=== PATIENT | male | born 1990 | race African-American/Black ===

== ENCOUNTER 2018-02-10 15:07 | Emergency (ER) | payer OTHER ==
[~2018-02-10] VITALS: Ht 182.9 cm; Wt 72.6 kg
--- NOTE | 2018-02-10 15:20 | NUR ---
ED Nurse Note: Patient came in from home c/o SOB X 2 days. SPo2 95% in the ER on room air . Pt ran out of albuterol INH. by the bedside. RT called
[2018-02-10 15:26] VITALS: BP 137/82
[2018-02-10] MEDS: Albuterol ud Inhalation HHN SCH ×3 (15:55→16:19)
[2018-02-10] MEDS: Ipratropium 0.02% Inh Soln 2.5ml UD HHN SCH ×3 (15:55→16:19)
[2018-02-10] MEDS ORDERED: ALBUTEROL2.5 MG/3 M HHN (16:37)
[2018-02-10] MEDS ORDERED: COMP-AIR NEBUL1 EACH MC (16:37)
[2018-02-10] MEDS ORDERED: ALBUTEROL SULF8.5 GM INH (16:37)
[2018-02-10] MEDS ORDERED: ZYRTEC10 MG ORAL (16:37)
[2018-02-10] MEDS ORDERED: PREDNISONE20 MG ORAL (16:37)
[2018-02-10 16:57] VITALS: BP 137/82
--- NOTE | 2018-02-10 17:00 | NUR ---
ED Nurse Note: Patient cleared by ERMD Dr. Norton to be discharged. Discharge instruction/paper/prescription given. Patient vebalized understanding, signed paper. ID band removed. Patient put her own clothes on. Patient ambulated out of ED with steady gait.
--- NOTE | 2018-02-10 17:40 | Emergency Room Report ---
History of Present Illness General Chief Complaint: Asthma Source: Patient Present Illness HPI 27-year-old male presents ED for evaluation. Complaining of wheezing and shortness of breath. started 2 days ago. States he has history of asthma which is triggered by cat dander. States he was staying with a friend who has a new cat. States he does not have an inhaler at this time. Denies chest pain. Denies cough. Denies fevers or chills. No other aggravating relieving factors. Denies any other associated symptoms Allergies: Coded Allergies: Cat Dander (Verified Allergy, Unknown, 02/10/18) Patient History Past Medical History: asthma Past Surgical History: none Pertinent Family History: none Social History: Denies: smoking, alcohol use, drug use Immunizations: UTD Reviewed Nursing Documentation: PMH: Agreed; PSxH: Agreed Nursing Documentation-PMH Hx Asthma: Yes Review of Systems All Other Systems: negative except mentioned in HPI Physical Exam Vital Signs Date Time Temp Pulse Resp B/P (MAP) Pulse Ox O2 Delivery O2 Flow Rate FiO2 02/10/18 15:12 98.2 107 18 137/82 90 Room Air 02/10/18 15:30 21 Sp02 EP Interpretation: reviewed, normal General Appearance: no apparent distress, alert, GCS 15, non-toxic Head: normocephalic Eyes: bilateral eye normal inspection, bilateral eye PERRL ENT: normal ENT inspection Neck: normal inspection Respiratory: decreased breath sounds, wheezing Cardiovascular #1: normal inspection Gastrointestinal: normal inspection Rectal: deferred Genitourinary: no CVA tenderness Musculoskeletal: normal inspection Neurologic: alert, oriented x3, responsive, motor strength/tone normal, sensory intact, speech normal Psychiatric: normal inspection Skin: normal inspection Lymphatic: normal inspection Medical Decision Making Diagnostic Impression: Primary Impression: Asthma attack Qualified Codes: J45.901 - Unspecified asthma with (acute) exacerbation ER Course Hospital Course 27-year-old male presents to ED complaining of SOB, wheezing Differential diagnoses include: URI, bronchitis, asthma/COPD, pneumonia Clinical course Patient placed on stretcher. After initial history, physical exam reveals a male in no acute distress. Bilateral TM unremarkable. No pharyngeal erythema. No tonsillar exudates. No lymphadenopathy. diffuse wheezing on exam. no retractions. given prednisone, and nebs x 3 On reassessment patient feels better. Improved breath sounds bilaterally. Discussed findings with patient. Safe for discharge with close outpatient follow-up. We'll provide prescriptions for steroids, inhaler, zyrtec Diagnosis - asthma attack Stable and discharged home with prescriptions for albuterol, prednisone, zyrtec. Instructed to followup with PMD. Return to ED if symptoms recur or worsen Last Vital Signs Date Time Temp Pulse Resp B/P (MAP) Pulse Ox O2 Delivery O2 Flow Rate FiO2 02/10/18 16:57 98.2 107 18 137/82 100 Room Air 02/10/18 16:45 21 Status: improved Disposition: HOME, SELF-CARE Condition: Stable Scripts Cetirizine Hcl* (ZYRTEC*) 10 Mg Tablet 10 MG ORAL DAILY, #30 TAB 0 Refills Prov: Catarino Norton MD 02/10/18 Nebulizer/Compressor (COMP-AIR NEBULIZER SYSTEM) 1 Each Each EACH , #1 Prov: Catarino Norton MD 02/10/18 Prednisone* (PREDNISONE*) 20 Mg Tablet 40 MG ORAL DAILY, #10 TAB Prov: Catarino Norton MD 02/10/18 Albuterol Sulfate* (ALBUTEROL SULFATE HHN*) 2.5 Mg/3 Ml Vial.neb 2.5 MG HHN Q4H PRN for Shortness of Breath, #25 VIAL Prov: Catarino Norton MD 02/10/18 Albuterol Sulfate* (ALBUTEROL SULFATE MDI*) 8.5 Gm Hfa.aer.ad 2 PUFF INH Q6H, #1 EA 0 Refills Prov: Catarino Norton MD 02/10/18 Referrals: [facility],REFERRING (PCP) Patient Instructions: Asthma, Adult Catarino Norton MD Feb 10, 2018 17:39
== END 2018-02-10 16:57 | disposition home or self-care (01) ==
LOC: EMR 15:50
DX: J45.901 Unspecified asthma with (acute) exacerbation (principal)
CPT/HCPCS: 94640; 94664; 99284; J7512

== ENCOUNTER 2018-07-27 22:24 | Emergency (ER) | payer OTHER ==
[~2018-07-27] VITALS: Ht 185.4 cm; Wt 72.6 kg
[~2018-07-27 22:24] MED LIST: ALBUTEROL SULF8.5 GM INH; ALBUTEROL2.5 MG/3 M HHN; COMP-AIR NEBUL1 EACH MC; PREDNISONE20 MG ORAL; ZYRTEC10 MG ORAL
[2018-07-27 22:29] VITALS: BP 153/94
--- NOTE | 2018-07-27 22:29 | NUR ---
ED Nurse Note: Patient presents with complaints of asthma attack, patient noted recently not having abluterol medication.
[2018-07-27] MEDS ORDERED: Ipratropium 0.02% Inh Soln 2.5ml UD HHN ONE (22:30)
[2018-07-27] MEDS ORDERED: Albuterol ud Inhalation HHN ONE ×2 (22:30→23:30)
--- NOTE | 2018-07-27 22:34 | Emergency Room Report ---
History of Present Illness General Chief Complaint: Asthma Source: Patient Present Illness HPI This is a 27-year-old male with a history of asthma and allergies to cats. He presents with chief complaint of respiratory distress and wheezing. He ran out of his inhaler about a week and a half ago. He was exposed to some cat earlier today. He started having wheezing and shortness of breath. Worse tonight. Worse with exertion. Worse with lying flat. Nothing made it better. Denies any other complaint. Similar symptoms in the past. Last steroid use was over a year ago. Allergies: Coded Allergies: Cat Dander (Verified Allergy, Unknown, 02/10/18) Patient History Past Medical History: see triage record, old chart reviewed, asthma Past Surgical History: none Pertinent Family History: none Social History: Denies: smoking Immunizations: other Reviewed Nursing Documentation: PMH: Agreed; PSxH: Agreed Nursing Documentation-PMH Hx Asthma: Yes Review of Systems Eye: Denies: eye pain, blurred vision ENT: Denies: ear pain, nose congestion, throat swelling Respiratory: Reports: cough, shortness of breath, wheezing Cardiovascular: Denies: chest pain, palpitations Gastrointestinal: Denies: abdominal pain, diarrhea, nausea, vomiting Musculoskeletal: Denies: back pain, joint pain Skin: Denies: rash Neurological: Denies: headache, numbness Endocrine: Denies: increased thirst, increased urine Hematologic/Lymphatic: Denies: easy bruising All Other Systems: negative except mentioned in HPI Physical Exam Vital Signs Date Time Temp Pulse Resp B/P (MAP) Pulse Ox O2 Delivery O2 Flow Rate FiO2 07/27/18 22:29 111 17 153/94 (113) 98 Room Air Vitals with tachycardia Sp02 EP Interpretation: reviewed, normal General Appearance: well appearing, alert, moderate distress Head: normocephalic, atraumatic Eyes: bilateral eye PERRL, bilateral eye EOMI ENT: hearing grossly normal, normal pharynx Neck: full range of motion, supple, no meningismus Respiratory: chest non-tender, respiratory distress, accessory muscle use, wheezing Cardiovascular #1: regular rate, rhythm, no murmur Gastrointestinal: normal bowel sounds, non tender, no mass, no organomegaly, no bruit, non-distended Musculoskeletal: back normal, gait/station normal, normal range of motion Psychiatric: mood/affect normal Skin: warm/dry Medical Decision Making Diagnostic Impression: Primary Impression: Asthma exacerbation ER Course Patient presents with asthma exacerbation. After 3 rounds of treatment and steroid he is much improved. No evidence of anaphylaxis. No evidence of status asthmaticus. No evidence of pneumonia. Will discharge home. Last Vital Signs Date Time Temp Pulse Resp B/P (MAP) Pulse Ox O2 Delivery O2 Flow Rate FiO2 07/27/18 22:29 111 17 153/94 (113) 98 Room Air Status: improved Disposition: HOME, SELF-CARE Condition: Stable Scripts Prednisone* (PREDNISONE*) 20 Mg Tablet 40 MG ORAL DAILY, #8 TAB Prov: Gustavo Connelly MD 07/28/18 Albuterol Sulfate* (ALBUTEROL SULFATE MDI*) 8.5 Gm Hfa.aer.ad 2 PUFF INH Q4H PRN for cough/wheezing, #1 EA 0 Refills Prov: Gustavo Connelly MD 07/28/18 Patient Instructions: Asthma, Adult Additional Instructions: Follow-up with your doctor in 7 days. Return if symptoms worsen. Gustavo Connelly MD Jul 27, 2018 22:34
--- NOTE | 2018-07-27 22:40 | NUR ---
ED Nurse Note: Patient undergoing breathing treatment.
[2018-07-27 22:42] VITALS: BP 153/94
--- NOTE | 2018-07-27 23:16 | NUR ---
ED Nurse Note: Patient tolerating breathing treatment well. no s/s of acute distress. vital signs stable.
--- NOTE | 2018-07-28 00:30 | NUR ---
ED Nurse Note: Patient resting in between breathing treatments. no SOB or difficulty moving air. Patient vital signs are within normal range.
[2018-07-28] MEDS ORDERED: ALBUTEROL SULF8.5 GM INH (01:10)
[2018-07-28] MEDS ORDERED: PREDNISONE20 MG ORAL (01:10)
[2018-07-28] MEDS ORDERED: Albuterol ud Inhalation HHN ONE (01:15)
[2018-07-28 01:39] VITALS: BP 153/94
--- NOTE | 2018-07-28 01:39 | NUR ---
ED Nurse Note: Patient cleared for discharge, ID band removed. Patient verbalized understanding of discharge instructions. Patient A&Ox4, ambulatory with steady gait. Patient departed with all personal belongings.
== END 2018-07-28 01:42 | disposition home or self-care (01) ==
LOC: EMR 22:57
DX: J45.901 Unspecified asthma with (acute) exacerbation (principal); Z91.048 Other nonmedicinal substance allergy status
CPT/HCPCS: 94640; 99284; J7512